=== PATIENT | female | born 1985 | race Caucasian/White ===

== ENCOUNTER 2021-01-17 15:35 | Emergency (ER) | payer OTHER, SELFPAY ==
[2021-01-17 15:40] VITALS: BP 112/70; PULSE 88; RESP 12; TEMP 36.4; O2SAT 99
--- NOTE | 2021-01-17 15:42 | ED.WOUNDLAC ---
HPI - Wound/Laceration General Chief Complaint: Wound/Laceration Stated Complaint: RIGHT HAND INDEX FINGER LACERATION Time Seen by Provider: 01/17/21 15:40 Source: patient Mode of arrival: Ambulatory Limitations: no limitations History of Present Illness HPI narrative: Patient is a 35-year-old female with an injury to her right index finger. States that earlier today she was chopping wood in hit her finger with an axe. She covered it with a bandage. Will need an updated tetanus. Related Data Previous Rx's Medication Instructions Recorded cephalexin 500 mg PO BID 7 Days #14 cap 01/17/21 hydrocodone-acetaminophen 1 tab PO Q4-6H PRN #14 tab 01/17/21 Allergies Allergy/AdvReac Type Severity Reaction Status Date / Time No Known Drug Allergies Allergy Verified 01/17/21 15:42 Review of Systems Constitutional Constitutional: Reports system reviewed and no additional complaints, except as documented Musculoskeletal Comments: Right index finger discomfort Integumentary/Breasts Comments: Cut to right index finger Neurologic Neurologic: Denies paresthesias Hematologic/Lymphatic On Anticoagulants: No Allergic/Immunologic Allergic/Immunologic: Reports system reviewed and no additional complaints, except as documented Patient History Medical History Healthy adult Social History Smoking Status: Never smoker Smoking Status: Never smoker Substance Use Type: marijuana Exam Initial Vital Signs Initial Vital Signs: Vital Signs Temperature 97.6 F 01/17/21 15:40 Pulse Rate 88 01/17/21 15:40 Respiratory Rate 12 01/17/21 15:40 Blood Pressure 112/70 01/17/21 15:40 Pulse Oximetry 99 01/17/21 15:40 Const General: cooperative and comfortable Limitations: mental status not altered Cardio Pulses: radial pulses present on the right Skin Other: Patient with amputation of the radial aspect of the distal index finger. It does involve the lateral aspect of the nail as well. The ulnar/medial aspect is normal. Does not extend proximal to the PIP joint. Neuro Sensory Exam: no sensory deficits noted Extrem Other: Full range of motion of MCP D IP and PIP joint of the right index finger Psych Appearance: grossly normal and well kempt Course Orders Ordered: ED Orders 01/17/21 15:42 XR finger RT min 2V Stat Discontinued Medications Hydrocodone Bitart/Acetaminophen (Hydrocodone/Acet 5/325 Tablet) 1 tab PO NOW ONE Stop: 01/17/21 16:38 Last Admin: 01/17/21 16:49 Dose: 1 tab Documented by: ARMEN Cephalexin HCl (Cephalexin 250 Mg Capsule) 500 mg PO NOW ONE Stop: 01/17/21 16:38 Last Admin: 01/17/21 16:49 Dose: 500 mg Documented by: ARMEN Diphtheria/Tetanus/Acell Pertussis (Tet,Diph,Pertuss(Acell),Vac/Pf 0.5 Ml Syringe) 0.5 ml IM .ONCE ONE Stop: 01/17/21 15:41 Last Admin: 01/17/21 15:45 Dose: 0.5 ml Documented by: ARMEN Lidocaine/Sodium Bicarbonate (Lido 1%/Sod Bicarb 8.4% (10ml) 10 Ml Syringe) 10 ml INJ NOW ONE Stop: 01/17/21 15:43 Last Admin: 01/17/21 15:45 Dose: 10 ml Documented by: ARMEN Vital Signs Vital signs: Vital Signs - 8 hr 01/17/21 15:40 01/17/21 16:53 Temperature 97.6 F Pulse Rate 88 77 Respiratory Rate 12 16 Blood Pressure 112/70 116/78 Pulse Oximetry 99 97 MDM - Wound/Laceration Imaging Data Extremity x-ray #1: Radiologist's Impression: [address] [id number] ReportSigned Patient: Horace Jerry#: [id number]: 1985Acct:[id number]/Sex: 35 / FDate of Service: 01/17/21Loc: EDAccession Number: [id number] Procedure: XR finger RT min 2V Ordering Provider: Ricardo Flor D.O. PROCEDURE: XR FINGER RT MIN 2V INDICATIONS: cut with axe TECHNIQUE: AP hand, 2 views of the right 2nd finger(s) acquired. COMPARISON: None. FINDINGS: Bones: Comminuted fracture of the tuft of the 2nd distal phalange. Distal tip of the 2nd finger soft tissues are amputated. Soft tissues: No suspicious soft tissue calcifications. IMPRESSION: Comminuted fracture of the tuft of the 2nd distal phalange. Dictated by: Amisha Lin MD, PhD on 01/17/2021 at 16:10 Approved by: Amisha Lin MD, PhD on 01/17/2021 at 16:11 [facility] Narrative Medical decision making narrative: Patient is neurovascularly intact. She does have a avulsion of the distal end of the finger. The nail bed was not involved. I do not feel the bone on I palpated it. The x-ray does show a tuft fracture. Because of this will start her on antibiotics. She was irrigated profusely. We placed a hemostatic gauze over the area and a bandage. We did discuss care instructions at home. We discussed return precautions. Patient expressed understanding and agreement. Discharge Plan Departure Patient Disposition: Home Clinical Impression: Closed fracture of tuft of distal phalanx of finger Amputation of tip of finger Qualifiers: Encounter type: initial encounter Qualified Code(s): S68.119A - Complete traumatic metacarpophalangeal amputation of unspecified finger, initial encounter Instructions: Skin Wound Activity Restrictions/Additional Instructions: The wound on the tip of your finger will heal but it will need to heal on its own. Unfortunately we are unable to place any sutures. The bandage that was placed today does need to stay on for the next 24-48 hours. Afterwards you can use the Vaseline gauze that we gave you and covered again with a bandage. You also caused a fracture of the very tip of the bone of your finger. It is not exposed on my exam. Because of this we will start you on antibiotics. First dose was given here in the ER. Contact your primary provider for a follow-up. Return to the emergency department for any new or worsening symptoms Prescriptions: New hydrocodone-acetaminophen 5-325 mg tablet 1 tab PO Q4-6H PRN (Reason: pain) Qty: 14 RF: 0 cephalexin 500 mg capsule 500 mg PO BID 7 Days Qty: 14 RF: 0 Referrals: Ricardo Bishop MD [Primary Care Provider] -
[2021-01-17] MEDS: TET,DIPH,PERTUSS(ACELL),VAC/PF 0.5 ML SYRINGE IM (15:45)
[2021-01-17] MEDS: LIDO 1%/SOD BICARB 8.4% (10ML) 10 ML SYRINGE INJ (15:45)
[2021-01-17] MEDS: cephALEXin 250 MG CAPSULE 500 MG PO (16:49)
[2021-01-17] MEDS: HYDROCODONE/ACET 5/325 TABLET 1 TAB PO (16:49)
[2021-01-17 16:53] VITALS: BP 116/78; PULSE 77; RESP 16; O2SAT 97
== END 2021-01-17 16:55 | disposition home or self-care (01) ==
PROVIDERS: Emergency Provider Emergency Medicine; PCP Family Medicine
DX: S68.120A Partial traumatic metacarpophalangeal amputation of right index finger, initial encounter (principal); W27.0XXA Contact with workbench tool, initial encounter; Z23 Encounter for immunization; Y99.0 Civilian activity done for income or pay
CPT/HCPCS: 29130; 73140; 90471; 99283; 99284; 90715